=== PATIENT | male | born 1955 | race Caucasian/White ===

== ENCOUNTER 2018-10-23 15:04 | Inpatient (IN) ==
[2018-10-23] MEDS ORDERED: AMPICILLIN/SULBACTAM 3,000 MG in SODIUM CHLORIDE 0.9% 100 ML IV STA (15:17)
[2018-10-23] MEDS ORDERED: FAMOTIDINE 20 MG/2 ML VIAL IV STA (15:19)
[2018-10-23] MEDS ORDERED: SODIUM CHLORIDE 0.9% 1,000 ML IV STA (15:20)
[2018-10-23 15:50] LABS: Basophils # 0.1 10*3/uL (0.0-0.2); Basophils % 0.2 % (0.0-0.8); Hematocrit 48.2 VOL% (42.0-52.0); Hemoglobin 15.6 GM/DL (14.0-18.0); Immature Granulocytes % 0.9 %; Lymphocytes # 1.2 10*3/uL (1.4-4.0); Lymphocytes % 5.6 % (21.2-54.2); Mean Corpuscular HGB Conc 32.4 GM/DL (32-36); Mean Corpuscular Volume 95.6 FL (87-102); Mean Platelet Volume 10.8 FL (9.6-12.0); Monocytes % 6.7 % (1.7-12.7); Neutrophils % 86.6 % (38.7-73.9); Platelet Count 175 T/CUMM (130-400); Red Blood Count 5.04 MC/CUMM (3.8-5.5); Red Cell Distribution Width 13.8 % (9.3-17.3); White Blood Count 21.4 T/CUMM (4-12)
[2018-10-23] MEDS ORDERED: BUPIVACAINE 0.25% /EPI 10 ML VIAL ONE (15:53)
[2018-10-23] MEDS ORDERED: LIDOCAINE 1%/EPI INJ 20 ML VIAL ONE (15:53)
[2018-10-23] MEDS ORDERED: TISSUE ADHESIVE 1 EACH APPLICATOR TOP ONE (15:53)
[2018-10-23 15:54] LABS: Albumin 3.5 G/DL (3.4-5.0); Bilirubin,Total 1.7 MG/DL (0.2-1.0); Osmolality,Calculated 279.7 MOS/KG (273-304); Total Protein 7.2 G/DL (6.4-8.3)
[2018-10-23 16:04] LABS: INR 1.2; PT Patient Result 12.9 SECS
[2018-10-23] MEDS ORDERED: SUGAMMADEX 200 MG/2 ML VIAL IV ONE (17:44)
[2018-10-23] MEDS ORDERED: MORPHINE 4 MG/1 ML VIAL IV PRN (17:50)
[2018-10-23] MEDS ORDERED: NITROGLYCERIN SL 0.4 MG TABLET SL PRN (17:54)
[2018-10-23 17:59] LABS: Lymphocytes 4 % (20-55); Segmented Neutrophils 92 % (50-85); Total Cells Counted 100
[2018-10-23 18:00] LABS: Anisocytosis Slight; Hypochromasia Slight; Microcytosis 1+
[2018-10-23 18:01] LABS: Platelet Estimate Decreased
[2018-10-23] MEDS ORDERED: SEVOFLURANE 1 UNIT/15 MINUTE INH ONE (18:23)
[2018-10-23] MEDS ORDERED: PROPOFOL 200 MG/20 ML VIAL IV ONE (18:23)
[2018-10-23] MEDS ORDERED: fentaNYL 100 MCG/2 ML VIAL ONE (18:23)
[2018-10-23] MEDS ORDERED: SUCCINYLCHOLINE 200 MG/10 ML VIAL ONE (18:24)
[2018-10-23] MEDS ORDERED: ROCURONIUM 100 MG/10 ML VIAL IV ONE (18:24)
[2018-10-23] MEDS ORDERED: ACETAMINOPHEN 1,000 MG/100 ML VIAL IV ONE (18:24)
[2018-10-23] MEDS ORDERED: LACTATED RINGERS 2,000 ML IV ONE (18:24)
[2018-10-23] MEDS ORDERED: MIDAZOLAM 2 MG/2 ML VIAL ONE (18:24)
[2018-10-23 19:07] LABS: Hematocrit 43.4 VOL% (42.0-52.0); Hemoglobin 14.1 GM/DL (14.0-18.0)
[2018-10-23] MEDS: LACTATED RINGERS 1,000 ML IV SCH (19:08)
[2018-10-23] MEDS: PIPERACILLIN/TAZOBACTAM 3,375 MG in SODIUM CHLORIDE 0.9% 100 ML IV SCH (19:31)
[2018-10-23 22:01] LABS: Apearance,Urine Slightly Hazy (Clear); Bacteria,Urine Occasional /HPF (Few); Bilirubin,Urine Negative (Negative); Blood, Urine Small mg/dL (Negative); Glucose,Urine (UA) Negative (Negative); Ketones,Urine 5 mg/dL (Negative); Mucus,Urine Occasional /LPF (Occasional); Nitrite,Urine Negative (Negative); Protein,Urine 30 MG/DL; RBC,Urine 19 /HPF (0-4); Squamous Epithelial Cell,Urine Occasional /HPF (0-10); Urine Color Amber (Yellow); Urine Specific Gravity 1.025 (1.001-1.035); WBC,Urine 185 /HPF (0-6)
[2018-10-24 02:08] LABS: Hematocrit 39.7 VOL% (42.0-52.0); Hemoglobin 12.9 GM/DL (14.0-18.0)
[2018-10-24] MEDS: PIPERACILLIN/TAZOBACTAM 3,375 MG in SODIUM CHLORIDE 0.9% 100 ML IV SCH ×3 (02:17→17:41)
[2018-10-24 05:36] LABS: Basophils % 0.2 % (0.0-0.8); Eosinophils # 0.1 10*3/uL (0.0-0.87); Eosinophils % 0.4 % (0.00-10.9); Hematocrit 39.1 VOL% (42.0-52.0); Hemoglobin 12.8 GM/DL (14.0-18.0); Immature Granulocytes % 0.8 %; Immature Granulocytes Absolute 0.13 #; Lymphocytes % 5.8 % (21.2-54.2); Mean Corpuscular HGB Conc 32.7 GM/DL (32-36); Mean Corpuscular Volume 95.4 FL (87-102); Mean Platelet Volume 10.7 FL (9.6-12.0); Monocytes % 4.9 % (1.7-12.7); Neutrophils % 87.9 % (38.7-73.9); Platelet Count 131 T/CUMM (130-400); White Blood Count 16.9 T/CUMM (4-12)
[2018-10-24 08:19] LABS: Calcium 7.7 MG/DL (8.5-10.1); Osmolality,Calculated 283.4 MOS/KG (273-304)
[2018-10-24] MEDS: LACTATED RINGERS 1,000 ML IV SCH ×3 (08:44→17:41)
[2018-10-24] MEDS: ASPIRIN EC 81 MG TABLET PO SCH (08:45)
[2018-10-24] MEDS: ROSUVASTATIN 20 MG TABLET PO SCH (08:46)
[2018-10-24] MEDS: METOPROLOL SUCCINATE XL 25 MG TABLET PO SCH (08:54)
[2018-10-24] MEDS ORDERED: LISINOPRIL 5 MG TABLET PO SCH (09:00)
[2018-10-24] MEDS ORDERED: ISOSORBIDE MONONITRATE 30 MG TABLET PO SCH (09:00)
[2018-10-24 09:54] LABS: Hematocrit 39.5 VOL% (42.0-52.0); Hemoglobin 12.8 GM/DL (14.0-18.0)
[2018-10-24 10:53] LABS: Hemoglobin 12.7 GM/DL (14.0-18.0)
[2018-10-24] MEDS ORDERED: LACTATED RINGERS 1,000 ML IV ONE (11:03)
[2018-10-24] MEDS: MORPHINE 4 MG/1 ML VIAL IV PRN ×3 (13:51→20:30)
[2018-10-24] MEDS ORDERED: NICOTINE 21 MG/24 HR PATCH TRANSDERM PRN (14:03)
[2018-10-24] MEDS: NICOTINE 14 MG/24 HR PATCH TRANSDERM SCH (16:21)
[2018-10-24] MEDS: ACETAMINOPHEN 325 MG TABLET PO PRN (16:22)
[2018-10-24 16:39] LABS: Hepatitis B Surface Ag Quant < 0.10 Index; Hepatitis B Surface Ag Result Negative (Negative); Hepatitis C Virus Ab Quant 0.04 Index; Hepatitis C Virus Ab Result Negative (Negative)
[2018-10-25] MEDS: MORPHINE 4 MG/1 ML VIAL IV PRN (02:22)
[2018-10-25] MEDS: PIPERACILLIN/TAZOBACTAM 3,375 MG in SODIUM CHLORIDE 0.9% 100 ML IV SCH ×3 (02:22→20:11)
[2018-10-25] MEDS: LACTATED RINGERS 1,000 ML IV SCH ×2 (02:23→12:11)
[2018-10-25 05:55] LABS: Basophils % 0.1 % (0.0-0.8); Eosinophils # 0.3 10*3/uL (0.0-0.87); Eosinophils % 2.1 % (0.00-10.9); Hematocrit 36.6 VOL% (42.0-52.0); Hemoglobin 11.5 GM/DL (14.0-18.0); Immature Granulocytes % 1.1 %; Immature Granulocytes Absolute 0.16 #; Lymphocytes % 6.9 % (21.2-54.2); Mean Corpuscular HGB Conc 31.4 GM/DL (32-36); Mean Corpuscular Volume 97.3 FL (87-102); Mean Platelet Volume 10.6 FL (9.6-12.0); Monocytes % 7.5 % (1.7-12.7); Neutrophils % 82.3 % (38.7-73.9); Platelet Count 135 T/CUMM (130-400); Red Blood Count 3.76 MC/CUMM (3.8-5.5); Red Cell Distribution Width 13.9 % (9.3-17.3)
[2018-10-25 06:18] LABS: Albumin 2.3 G/DL (3.4-5.0); Bilirubin,Total 1.3 MG/DL (0.2-1.0); Calcium 8.1 MG/DL (8.5-10.1); Osmolality,Calculated 277.5 MOS/KG (273-304); Total Protein 5.3 G/DL (6.4-8.3)
[2018-10-25] MEDS: ASPIRIN EC 81 MG TABLET PO SCH (10:12)
[2018-10-25] MEDS: NICOTINE 14 MG/24 HR PATCH TRANSDERM SCH (10:12)
[2018-10-25] MEDS: ROSUVASTATIN 20 MG TABLET PO SCH (10:12)
[2018-10-25] MEDS: METOPROLOL SUCCINATE XL 25 MG TABLET PO SCH (10:12)
[2018-10-25] MEDS: ACETAMINOPHEN 325 MG TABLET PO PRN (17:18)
[2018-10-25] MEDS: diphenhydrAMINE CAP 25 MG CAPSULE PO PRN (21:45)
[2018-10-25] MEDS: DOCUSATE SODIUM 100 MG CAPSULE PO SCH (21:46)
[2018-10-26] MEDS: PIPERACILLIN/TAZOBACTAM 3,375 MG in SODIUM CHLORIDE 0.9% 100 ML IV SCH ×3 (04:06→19:32)
[2018-10-26] MEDS: BISACODYL 10 MG SUPP RECTAL PRN ×2 (04:22→21:26)
[2018-10-26] MEDS: ROSUVASTATIN 20 MG TABLET PO SCH (10:50)
[2018-10-26] MEDS: DOCUSATE SODIUM 100 MG CAPSULE PO SCH ×2 (10:50→21:26)
[2018-10-26] MEDS: NICOTINE 14 MG/24 HR PATCH TRANSDERM SCH (10:51)
[2018-10-26] MEDS: ASPIRIN EC 81 MG TABLET PO SCH (10:51)
[2018-10-26] MEDS: METOPROLOL SUCCINATE XL 25 MG TABLET PO SCH (10:51)
[2018-10-26] MEDS: diphenhydrAMINE CAP 25 MG CAPSULE PO PRN (21:25)
[2018-10-27] MEDS: PIPERACILLIN/TAZOBACTAM 3,375 MG in SODIUM CHLORIDE 0.9% 100 ML IV SCH ×3 (03:20→19:47)
[2018-10-27 06:07] LABS: Basophils % 0.3 % (0.0-0.8); Eosinophils # 0.5 10*3/uL (0.0-0.87); Hematocrit 40.7 VOL% (42.0-52.0); Hemoglobin 13.2 GM/DL (14.0-18.0); Immature Granulocytes % 1.1 %; Immature Granulocytes Absolute 0.13 #; Lymphocytes # 1.4 10*3/uL (1.4-4.0); Lymphocytes % 12.1 % (21.2-54.2); Mean Corpuscular HGB Conc 32.4 GM/DL (32-36); Mean Corpuscular Volume 95.3 FL (87-102); Mean Platelet Volume 10.4 FL (9.6-12.0); Monocytes % 9.6 % (1.7-12.7); Neutrophils % 72.9 % (38.7-73.9); Platelet Count 215 T/CUMM (130-400); Red Blood Count 4.27 MC/CUMM (3.8-5.5); Red Cell Distribution Width 13.9 % (9.3-17.3); White Blood Count 11.4 T/CUMM (4-12)
[2018-10-27 06:28] LABS: Eosinophils 6 % (0-10); Lymphocytes 6 % (20-55); Metamyelocytes 1 %; Platelet Estimate Adequate; Polychromasia Few; Segmented Neutrophils 85 % (50-85); Total Cells Counted 100
[2018-10-27] MEDS: NICOTINE 14 MG/24 HR PATCH TRANSDERM SCH (10:40)
[2018-10-27] MEDS: MORPHINE 4 MG/1 ML VIAL IV PRN ×3 (10:55→21:36)
[2018-10-27] MEDS: ONDANSETRON 4 MG/2 ML VIAL IV PRN ×2 (10:55→16:05)
[2018-10-27] MEDS: LACTATED RINGERS 1,000 ML IV SCH ×2 (18:19→18:49)
[2018-10-27] MEDS: DOCUSATE SODIUM 100 MG CAPSULE PO SCH ×2 (18:49→23:55)
[2018-10-27] MEDS: ASPIRIN EC 81 MG TABLET PO SCH (18:49)
[2018-10-27] MEDS: ROSUVASTATIN 20 MG TABLET PO SCH (18:50)
[2018-10-27] MEDS: METOPROLOL SUCCINATE XL 25 MG TABLET PO SCH (18:50)
[2018-10-28] MEDS: PIPERACILLIN/TAZOBACTAM 3,375 MG in SODIUM CHLORIDE 0.9% 100 ML IV SCH ×3 (01:57→17:22)
[2018-10-28] MEDS: NICOTINE 14 MG/24 HR PATCH TRANSDERM SCH (09:09)
[2018-10-28] MEDS: DOCUSATE SODIUM 100 MG CAPSULE PO SCH ×2 (09:11→21:30)
[2018-10-28] MEDS: ASPIRIN EC 81 MG TABLET PO SCH (09:11)
[2018-10-28] MEDS: METOPROLOL SUCCINATE XL 25 MG TABLET PO SCH (09:11)
[2018-10-28] MEDS: ROSUVASTATIN 20 MG TABLET PO SCH (09:11)
[2018-10-28] MEDS: LACTATED RINGERS 1,000 ML IV SCH ×4 (09:12→09:15)
[2018-10-28 12:46] LABS: Basophils % 0.3 % (0.0-0.8); Eosinophils # 0.2 10*3/uL (0.0-0.87); Eosinophils % 2.1 % (0.00-10.9); Hematocrit 41.9 VOL% (42.0-52.0); Hemoglobin 13.1 GM/DL (14.0-18.0); Lymphocytes # 1.4 10*3/uL (1.4-4.0); Lymphocytes % 14.5 % (21.2-54.2); Mean Corpuscular HGB Conc 31.3 GM/DL (32-36); Mean Platelet Volume 9.5 FL (9.6-12.0); Monocytes % 8.7 % (1.7-12.7); Neutrophils % 72.4 % (38.7-73.9); Platelet Count 217 T/CUMM (130-400); Red Blood Count 4.32 MC/CUMM (3.8-5.5); Red Cell Distribution Width 13.6 % (9.3-17.3); White Blood Count 9.9 T/CUMM (4-12)
[2018-10-28 13:12] LABS: Albumin 2.5 G/DL (3.4-5.0); Bilirubin,Total 0.6 MG/DL (0.2-1.0); Calcium 8.9 MG/DL (8.5-10.1)
[2018-10-28 13:15] LABS: Eosinophils 3 % (0-10); Lymphocytes 15 % (20-55); Platelet Estimate Normal; Segmented Neutrophils 73 % (50-85); Total Cells Counted 100
[2018-10-28 13:16] LABS: Hypochromasia Slight
[2018-10-28 13:17] LABS: Microcytosis 1+
[2018-10-28] MEDS: ACETAMINOPHEN 325 MG TABLET PO PRN (21:24)
[2018-10-29] MEDS: LACTATED RINGERS 1,000 ML IV SCH ×2 (02:26→09:18)
[2018-10-29] MEDS: PIPERACILLIN/TAZOBACTAM 3,375 MG in SODIUM CHLORIDE 0.9% 100 ML IV SCH ×3 (02:26→17:14)
[2018-10-29] MEDS: ASPIRIN EC 81 MG TABLET PO SCH (09:19)
[2018-10-29] MEDS: METOPROLOL SUCCINATE XL 25 MG TABLET PO SCH (09:19)
[2018-10-29] MEDS: ROSUVASTATIN 20 MG TABLET PO SCH (09:19)
[2018-10-29] MEDS: NICOTINE 14 MG/24 HR PATCH TRANSDERM SCH (09:19)
[2018-10-29] MEDS: DOCUSATE SODIUM 100 MG CAPSULE PO SCH ×2 (09:19→21:15)
[2018-10-29] MEDS: MORPHINE 4 MG/1 ML VIAL IV PRN (09:32)
[2018-10-29] MEDS: PANTOPRAZOLE 40 MG TABLET PO SCH (10:37)
[2018-10-29] MEDS: diphenhydrAMINE CAP 25 MG CAPSULE PO PRN (21:17)
[2018-10-29] MEDS: ACETAMINOPHEN 325 MG TABLET PO PRN (21:17)
[2018-10-30] MEDS: PIPERACILLIN/TAZOBACTAM 3,375 MG in SODIUM CHLORIDE 0.9% 100 ML IV SCH ×2 (02:22→09:42)
[2018-10-30 05:54] LABS: Basophils % 0.4 % (0.0-0.8); Eosinophils # 0.2 10*3/uL (0.0-0.87); Eosinophils % 2.3 % (0.00-10.9); Hematocrit 37.7 VOL% (42.0-52.0); Hemoglobin 12.1 GM/DL (14.0-18.0); Immature Granulocytes % 2.3 %; Immature Granulocytes Absolute 0.21 #; Lymphocytes # 1.9 10*3/uL (1.4-4.0); Mean Corpuscular HGB Conc 32.1 GM/DL (32-36); Mean Corpuscular Volume 95.2 FL (87-102); Mean Platelet Volume 9.9 FL (9.6-12.0); Monocytes % 11.6 % (1.7-12.7); Neutrophils % 62.4 % (38.7-73.9); Platelet Count 200 T/CUMM (130-400); Red Blood Count 3.96 MC/CUMM (3.8-5.5); Red Cell Distribution Width 13.6 % (9.3-17.3); White Blood Count 9.2 T/CUMM (4-12)
[2018-10-30] MEDS: DOCUSATE SODIUM 100 MG CAPSULE PO SCH (09:42)
[2018-10-30] MEDS: PANTOPRAZOLE 40 MG TABLET PO SCH (09:42)
[2018-10-30] MEDS: ROSUVASTATIN 20 MG TABLET PO SCH (09:42)
[2018-10-30] MEDS: METOPROLOL SUCCINATE XL 25 MG TABLET PO SCH (09:42)
[2018-10-30] MEDS: ASPIRIN EC 81 MG TABLET PO SCH (09:42)
[2018-10-30] MEDS: NICOTINE 14 MG/24 HR PATCH TRANSDERM SCH (09:43)
[2018-10-30] MEDS ORDERED: ERTAPENEM 1,000 MG in SODIUM CHLORIDE 0.9% 100 ML IV SCH (12:45)
[2018-10-30 14:25] VITALS: BP 125/73
== END 2018-10-30 16:22 | disposition home health service (06) | DRG 339 ==
LOC: N.ED 15:04 → N.EDINP 15:04 → N.5E 18:49
PROVIDERS: ADMIT Surgery; ATTEND Surgery

== ENCOUNTER 2021-12-28 16:03 | Inpatient (IN) ==
[2021-12-28 16:48] LABS: Basophils % 0.4 % (0.0-0.8); Eosinophils # 0.2 10*3/uL (0.0-0.87); Eosinophils % 1.6 % (0.00-10.9); Hematocrit 43.7 VOL% (42.0-52.0); Hemoglobin 14.3 GM/DL (14.0-18.0); Immature Granulocytes % 0.3 %; Immature Granulocytes Absolute 0.03 #; Lymphocytes # 3.1 10*3/uL (1.4-4.0); Lymphocytes % 29.2 % (21.2-54.2); Mean Corpuscular HGB Conc 32.7 GM/DL (32-36); Mean Corpuscular Volume 96.3 FL (87-102); Monocytes % 9.2 % (1.7-12.7); Neutrophils % 59.3 % (38.7-73.9); Platelet Count 211 T/CUMM (130-400); Red Blood Count 4.54 MC/CUMM (3.8-5.5); Red Cell Distribution Width 13.9 % (9.3-17.3); White Blood Count 10.5 T/CUMM (4-12)
[2021-12-28] MEDS ORDERED: ONDANSETRON 4 MG/2 ML VIAL IV STA (16:55)
[2021-12-28] MEDS ORDERED: SODIUM CHLORIDE 0.9% 1,000 ML IV STA (16:55)
[2021-12-28] MEDS ORDERED: MORPHINE 2 MG/1 ML SYRINGE IV STA (16:55)
[2021-12-28] MEDS ORDERED: HYDROmorphone 1 MG/1 ML SYRINGE IV STA ×2 (17:10→18:16)
[2021-12-28 17:14] LABS: Albumin 3.7 G/DL (3.4-5.0); Bilirubin,Total 0.5 MG/DL (0.20-1.00); Calcium 8.8 MG/DL (8.5-10.1); Osmolality,Calculated 289.7 MOS/KG (273-304); Potassium 3.9 MMOL/L (3.5-5.1); Total Protein 6.4 G/DL (6.4-8.2)
[2021-12-28] MEDS ORDERED: NITROGLYCERIN SL 0.4 MG TABLET SL STA (18:16)
[2021-12-28] MEDS ORDERED: NICOTINE 21 MG/24 HR PATCH TRANSDERM PRN (19:16)
[2021-12-28] MEDS ORDERED: DOCUSATE SODIUM 100 MG CAPSULE PO PRN (19:16)
[2021-12-28] MEDS ORDERED: ONDANSETRON 4 MG/2 ML VIAL IV PRN (19:16)
[2021-12-28] MEDS ORDERED: guaiFENesin/DM ER 600-30 MG TABLET PO PRN (19:16)
[2021-12-28] MEDS ORDERED: GLUCAGON 1 MG VIAL IM PRN (19:16)
[2021-12-28] MEDS ORDERED: LORazepam 1 MG TABLET PO PRN (19:19)
[2021-12-28] MEDS ORDERED: NITROGLYCERIN SL 0.4 MG TABLET SL PRN (19:23)
[2021-12-28] MEDS ORDERED: DEXTROSE 10% 250 ML BAG IV PRN (19:34)
[2021-12-28] MEDS: SODIUM CHLORIDE 0.9% 1,000 ML IV SCH (20:24)
[2021-12-28] MEDS ORDERED: ENOXAPARIN 40 MG/0.4 ML SYRINGE SUBCUT SCH (21:00)
[2021-12-28] MEDS ORDERED: ENOXAPARIN 120 MG/0.8 ML SYRINGE SUBCUT ONE (21:30)
[2021-12-28] MEDS: CETIRIZINE 10 MG TABLET PO SCH (21:59)
[2021-12-29 00:47] LABS: Mucus,Urine Few /LPF (Occasional); RBC,Urine 6 /HPF (0-4); Squamous Epithelial Cell,Urine Occasional /HPF (0-10)
[2021-12-29 00:48] LABS: Urine Appearance Clear (Clear); Urine Color Dark Yellow (Yellow)
[2021-12-29 00:49] LABS: Bilirubin,Urine Negative (Negative); Blood, Urine Negative (Negative); Glucose,Urine (UA) Negative (Negative); Ketones,Urine Negative (Negative); Nitrite,Urine Negative (Negative); Protein,Urine 100 mg/dL (Negative); Urine Specific Gravity >= 1.030 (1.001-1.035)
[2021-12-29] MEDS: FINASTERIDE 5 MG TABLET PO SCH ×2 (01:39→20:17)
[2021-12-29] MEDS: RANOLAZINE 500 MG TABLET PO SCH ×3 (01:39→20:17)
[2021-12-29 02:45] LABS: Basophils # 0.1 10*3/uL (0.0-0.2); Basophils % 0.4 % (0.0-0.8); Eosinophils # 0.1 10*3/uL (0.0-0.87); Eosinophils % 1.2 % (0.00-10.9); Hematocrit 42.7 VOL% (42.0-52.0); Immature Granulocytes % 0.4 %; Immature Granulocytes Absolute 0.05 #; Lymphocytes # 1.6 10*3/uL (1.4-4.0); Lymphocytes % 13.5 % (21.2-54.2); Mean Corpuscular HGB Conc 32.8 GM/DL (32-36); Mean Platelet Volume 9.8 FL (9.6-12.0); Monocytes % 8.4 % (1.7-12.7); Neutrophils % 76.1 % (38.7-73.9); Platelet Count 158 T/CUMM (130-400); White Blood Count 12.1 T/CUMM (4-12)
[2021-12-29 03:13] LABS: Albumin 3.4 G/DL (3.4-5.0); Bilirubin,Total 0.5 MG/DL (0.20-1.00); Calcium 8.3 MG/DL (8.5-10.1); Osmolality,Calculated 283.3 MOS/KG (273-304); Potassium 3.8 MMOL/L (3.5-5.1); Risk Ratio 2.95; Thyroid Stimulating Hormone 0.939 uIU/ml (0.358-3.74); Total Protein 5.8 G/DL (6.4-8.2); VLDL Cholesterol 27.8 MG/DL
[2021-12-29] MEDS ORDERED: CLOPIDOGREL 300 MG TABLET PO ONE (08:26)
[2021-12-29] MEDS ORDERED: DIAZEPAM 5 MG TABLET PO ONE ×2 (08:28)
[2021-12-29] MEDS ORDERED: diphenhydrAMINE CAP 50 MG CAPSULE PO ONE ×2 (08:28)
[2021-12-29] MEDS ORDERED: MAGNESIUM SULF RIDER 2 GM/50 ML PREMIX IV PRN (08:28)
[2021-12-29] MEDS ORDERED: POTASSIUM CHLORIDE RIDER 10 MEQ/100 ML PREMIX IV PRN (08:28)
[2021-12-29] MEDS ORDERED: HEPARIN/NACL 0.9% 2 UNITS/ML 2,000 UNIT/1,000 ML BAG IV ONE (08:30)
[2021-12-29] MEDS ORDERED: MIDAZOLAM 2 MG/2 ML VIAL ONE (08:53)
[2021-12-29] MEDS ORDERED: fentaNYL 100 MCG/2 ML VIAL ONE (08:53)
[2021-12-29] MEDS ORDERED: ENOXAPARIN 60 MG/0.6 ML SYRINGE ONE (08:59)
[2021-12-29] MEDS ORDERED: CLOPIDOGREL 75 MG TABLET PO ONE (09:00)
[2021-12-29] MEDS ORDERED: HEPARIN/NACL 0.9% 2 UNITS/ML 1,000 UNIT/500 ML BAG IV ONE (09:19)
[2021-12-29] MEDS: SODIUM CHLORIDE 0.9% 1,000 ML IV SCH ×2 (09:58→20:30)
[2021-12-29] MEDS: THIAMINE 100 MG TABLET PO SCH (14:39)
[2021-12-29] MEDS: ROSUVASTATIN 20 MG TABLET PO SCH (14:39)
[2021-12-29] MEDS: ASPIRIN EC 81 MG TABLET PO SCH (14:39)
[2021-12-29] MEDS: FOLIC ACID 1 MG TABLET PO SCH (14:40)
[2021-12-29] MEDS: METOPROLOL SUCCINATE XL 25 MG TABLET PO SCH (14:40)
[2021-12-29] MEDS: MULTIVITAMIN (CENTRUM) TABLET PO SCH (14:40)
[2021-12-29] MEDS: PANTOPRAZOLE 40 MG TABLET PO SCH (14:40)
[2021-12-29] MEDS: CLOPIDOGREL 75 MG TABLET PO SCH (14:45)
[2021-12-29] MEDS: CETIRIZINE 10 MG TABLET PO SCH (20:17)
[2021-12-29] MEDS: FAMOTIDINE 20 MG TABLET PO SCH (20:17)
[2021-12-30 04:59] LABS: Hematocrit 40.3 VOL% (42.0-52.0); Mean Corpuscular HGB Conc 32.3 GM/DL (32-36); Mean Corpuscular Volume 97.1 FL (87-102); Red Blood Count 4.15 MC/CUMM (3.8-5.5); Red Cell Distribution Width 13.8 % (9.3-17.3)
[2021-12-30 05:00] LABS: Basophils % 0.2 % (0.0-0.8); Eosinophils # 0.1 10*3/uL (0.0-0.87); Eosinophils % 0.5 % (0.00-10.9); Immature Granulocytes % 0.5 %; Immature Granulocytes Absolute 0.05 #; Lymphocytes # 1.6 10*3/uL (1.4-4.0); Lymphocytes % 14.3 % (21.2-54.2); Mean Platelet Volume 10.4 FL (9.6-12.0); Monocytes # 1.2 10*3/uL (0.11-0.8); Monocytes % 11.3 % (1.7-12.7); Neutrophils % 73.2 % (38.7-73.9); Platelet Count 145 T/CUMM (130-400)
[2021-12-30 05:16] LABS: Calcium 8.1 MG/DL (8.5-10.1); Potassium 3.9 MMOL/L (3.5-5.1)
[2021-12-30] MEDS: RANOLAZINE 500 MG TABLET PO SCH (08:21)
[2021-12-30] MEDS: ROSUVASTATIN 20 MG TABLET PO SCH (08:21)
[2021-12-30] MEDS: MULTIVITAMIN (CENTRUM) TABLET PO SCH (08:21)
[2021-12-30] MEDS: CLOPIDOGREL 75 MG TABLET PO SCH (08:21)
[2021-12-30] MEDS: THIAMINE 100 MG TABLET PO SCH (08:21)
[2021-12-30] MEDS: PANTOPRAZOLE 40 MG TABLET PO SCH (08:22)
[2021-12-30] MEDS: FAMOTIDINE 20 MG TABLET PO SCH (08:22)
[2021-12-30] MEDS: METOPROLOL SUCCINATE XL 25 MG TABLET PO SCH (08:22)
[2021-12-30] MEDS: FOLIC ACID 1 MG TABLET PO SCH (08:22)
[2021-12-30] MEDS: ASPIRIN EC 81 MG TABLET PO SCH (08:22)
[2021-12-30] MEDS ORDERED: lisinopriL 5 MG TABLET PO SCH (09:00)
[2021-12-30] MEDS ORDERED: PANTOPRAZOLE 40 MG TABLET PO SCH (09:00)
[2021-12-30] MEDS: SODIUM CHLORIDE 0.9% 1,000 ML IV SCH (09:02)
[2021-12-30 12:03] LABS: CKMB % 6.09 %
[2021-12-30 12:10] LABS: High Sensitive Troponin I* 23926.2 ng/L (0-78)
[2021-12-30 12:35] VITALS: BP 106/66
== END 2021-12-30 14:11 | disposition home or self-care (01) | DRG 247 ==
LOC: N.ED 16:03 → N.EDINP 16:03 → N.TELEN 21:36 → SUATTDRO 12-29 15:19
PROVIDERS: ADMIT Family Medicine; ATTEND Family Medicine

== ENCOUNTER 2022-01-06 11:00 | Inpatient (IN) ==
[2022-01-06 11:41] LABS: Basophils # 0.1 10*3/uL (0.0-0.2); Basophils % 0.7 % (0.0-0.8); Eosinophils # 0.1 10*3/uL (0.0-0.87); Eosinophils % 1.6 % (0.00-10.9); Hematocrit 40.5 VOL% (42.0-52.0); Hemoglobin 13.4 GM/DL (14.0-18.0); Immature Granulocytes % 0.6 %; Immature Granulocytes Absolute 0.05 #; Lymphocytes # 1.7 10*3/uL (1.4-4.0); Mean Corpuscular HGB Conc 33.1 GM/DL (32-36); Mean Corpuscular Volume 95.5 FL (87-102); Mean Platelet Volume 9.5 FL (9.6-12.0); Monocytes # 0.8 10*3/uL (0.11-0.8); Monocytes % 9.5 % (1.7-12.7); Neutrophils % 68.6 % (38.7-73.9); Platelet Count 240 T/CUMM (130-400); Red Blood Count 4.24 MC/CUMM (3.8-5.5); Red Cell Distribution Width 13.6 % (9.3-17.3); White Blood Count 8.9 T/CUMM (4-12)
[2022-01-06] MEDS: NITROGLYCERIN SL 0.4 MG TABLET SL PRN ×2 (11:49→11:55)
[2022-01-06] MEDS ORDERED: HEPARIN 5,000 UNIT/1 ML VIAL ONE (12:04)
[2022-01-06] MEDS ORDERED: ASPIRIN EC 81 MG TABLET PO ONE (12:04)
[2022-01-06] MEDS ORDERED: ASPIRIN CHEW 81 MG TABLET PO ONE (12:04)
[2022-01-06] MEDS ORDERED: HEPARIN/NACL 0.9% 2 UNITS/ML 2,000 UNIT/1,000 ML BAG IV ONE (12:04)
[2022-01-06] MEDS ORDERED: ASPIRIN CHEW 81 MG TABLET PO STA (12:07)
[2022-01-06] MEDS ORDERED: HEPARIN 1,000 UNIT/1 ML VIAL IV STA (12:08)
[2022-01-06] MEDS ORDERED: HEPARIN 5,000 UNIT/1 ML VIAL IV STA (12:10)
[2022-01-06] MEDS ORDERED: MIDAZOLAM 2 MG/2 ML VIAL ONE (12:13)
[2022-01-06] MEDS ORDERED: fentaNYL 100 MCG/2 ML VIAL ONE (12:13)
[2022-01-06] MEDS ORDERED: ACETAMINOPHEN 325 MG TABLET PO PRN (12:15)
[2022-01-06] MEDS ORDERED: DOCUSATE SODIUM 100 MG CAPSULE PO PRN (12:15)
[2022-01-06] MEDS ORDERED: diphenhydrAMINE CAP 25 MG CAPSULE PO PRN (12:15)
[2022-01-06] MEDS ORDERED: MAGNESIUM SULF RIDER 4 GM/100 ML PREMIX IV PRN (12:15)
[2022-01-06] MEDS ORDERED: hydrALAZINE 20 MG/1 ML VIAL IV PRN (12:15)
[2022-01-06] MEDS ORDERED: MAGNESIUM SULF RIDER 2 GM/50 ML PREMIX IV PRN (12:15)
[2022-01-06] MEDS ORDERED: NICOTINE 21 MG/24 HR PATCH TRANSDERM PRN (12:15)
[2022-01-06] MEDS ORDERED: MORPHINE 2 MG/1 ML SYRINGE IV PRN (12:15)
[2022-01-06] MEDS ORDERED: POTASSIUM CHLORIDE 20 MEQ TABLET PO PRN (12:15)
[2022-01-06] MEDS ORDERED: guaiFENesin/DM ER 600-30 MG TABLET PO PRN (12:15)
[2022-01-06] MEDS ORDERED: ZALEPLON 5 MG CAPSULE PO PRN (12:15)
[2022-01-06] MEDS ORDERED: ONDANSETRON 4 MG/2 ML VIAL IV PRN (12:15)
[2022-01-06] MEDS ORDERED: PROMETHAZINE 25 MG TABLET PO PRN (12:15)
[2022-01-06 12:25] LABS: Albumin 3.4 G/DL (3.4-5.0); Bilirubin,Total 0.7 MG/DL (0.20-1.00); Calcium 8.8 MG/DL (8.5-10.1); Potassium 4.8 MMOL/L (3.5-5.1); Total Protein 6.2 G/DL (6.4-8.2)
[2022-01-06] MEDS ORDERED: EPTIFIBATIDE 0 MG/0 ML BOTTLE IV ONE (12:27)
[2022-01-06] MEDS ORDERED: EPTIFIBATIDE 20,000 MCG/10 ML VIAL ONE (12:27)
[2022-01-06] MEDS ORDERED: SODIUM CHLORIDE 0.9% 1,000 ML IV SCH (13:30)
[2022-01-06] MEDS: FAMOTIDINE 20 MG TABLET PO SCH (20:47)
[2022-01-06] MEDS: RANOLAZINE 500 MG TABLET PO SCH (20:47)
[2022-01-06] MEDS ORDERED: FINASTERIDE 5 MG TABLET PO SCH (21:00)
[2022-01-06] MEDS ORDERED: ROSUVASTATIN 20 MG TABLET PO SCH (21:00)
[2022-01-06] MEDS ORDERED: CETIRIZINE 10 MG TABLET PO SCH (21:00)
[2022-01-07 05:46] LABS: Basophils # 0.1 10*3/uL (0.0-0.2); Basophils % 0.6 % (0.0-0.8); Eosinophils # 0.2 10*3/uL (0.0-0.87); Eosinophils % 1.8 % (0.00-10.9); Hematocrit 38.5 VOL% (42.0-52.0); Hemoglobin 12.7 GM/DL (14.0-18.0); Immature Granulocytes % 0.5 %; Immature Granulocytes Absolute 0.04 #; Lymphocytes # 1.5 10*3/uL (1.4-4.0); Lymphocytes % 18.5 % (21.2-54.2); Mean Corpuscular Volume 96.3 FL (87-102); Mean Platelet Volume 9.9 FL (9.6-12.0); Monocytes # 0.8 10*3/uL (0.11-0.8); Monocytes % 10.1 % (1.7-12.7); Neutrophils % 68.5 % (38.7-73.9); Platelet Count 249 T/CUMM (130-400); Red Cell Distribution Width 13.6 % (9.3-17.3); White Blood Count 8.2 T/CUMM (4-12)
[2022-01-07 06:11] LABS: Alanine Aminotransferase 18 U/L (16-61); Albumin 2.8 G/DL (3.4-5.0); Alkaline Phosphatase 61 U/L (45-117); Aspartate Amino Transferase 11 U/L (0-37); Blood Urea Nitrogen 11 MG/DL (7-18); Calcium 8.5 MG/DL (8.5-10.1); Carbon Dioxide 27 MMOL/L (21-32); Chloride 109 MMOL/L (98-107); Glucose 112 MG/DL (74-106); Osmolality,Calculated 276.5 MOS/KG (273-304); Potassium 4.1 MMOL/L (3.5-5.1); Sodium 139 MMOL/L (136-145); Total Protein 5.8 G/DL (6.4-8.2)
[2022-01-07 07:45] VITALS: BP 106/69
[2022-01-07] MEDS: FAMOTIDINE 20 MG TABLET PO SCH (08:20)
[2022-01-07] MEDS: RANOLAZINE 500 MG TABLET PO SCH (08:20)
[2022-01-07] MEDS ORDERED: PANTOPRAZOLE 40 MG TABLET PO SCH ×2 (09:00)
[2022-01-07] MEDS ORDERED: lisinopriL 5 MG TABLET PO SCH (09:00)
[2022-01-07] MEDS ORDERED: ASPIRIN EC 81 MG TABLET PO SCH (09:00)
[2022-01-07] MEDS ORDERED: CLOPIDOGREL 75 MG TABLET PO SCH (09:00)
[2022-01-07] MEDS ORDERED: MULTIVITAMIN (CENTRUM) TABLET PO SCH (09:00)
[2022-01-07] MEDS ORDERED: METOPROLOL SUCCINATE XL 25 MG TABLET PO SCH (09:00)
== END 2022-01-07 09:43 | disposition home or self-care (01) | DRG 287 ==
LOC: N.ED 11:00 → N.TELES 12:15
PROVIDERS: ADMIT Internal Medicine Cardiovascular Disease; ATTEND Internal Medicine Cardiovascular Disease